=== PATIENT | male | born 1970 | race Caucasian/White ===

== ENCOUNTER 2022-05-31 20:58 | Observation (INO) | payer OTHER, BC ==
[2022-05-31] MEDS ORDERED: DUONEB 0.5-3 MG/3 ml Neb IH ONE ×2 (21:31→21:40)
[2022-05-31] MEDS ORDERED: solu-MEDROL 125 MG, Sterile H2O 10 ml 2 ML IV ONE ×2 (21:31)
[2022-05-31] MEDS ORDERED: Sodium Chloride 0.9% 1000 ML 1,000 ML IV STA (21:31)
[2022-05-31] MEDS ORDERED: Sodium Chloride 0.9% 1000 ML 1,000 ML ONE (21:43)
[2022-05-31] MEDS ORDERED: Sterile H2O 10 ml IJ ONE (21:43)
[2022-05-31] MEDS ORDERED: solu-MEDROL ONE (21:43)
[2022-05-31 21:56] LABS: Absolute Neutrophil Ct (ANC) 12.32 x10^3/uL (1.4-6.9); BASOPHIL % 0.3 % (0.0-0.4); Basophil (Absolute #) 0.04 x10^3/uL (0-0.4); Eosinophil % 0.3 % (0.00-5.0); Eosinophil (Absolute #) 0.05 x10^3/uL (0-0.5); Hematocrit 39.8 % (42-50); Hemoglobin 13.4 g/dL (12.5-18.0); IMMATURE GRAN # 0.09 x10^3u/L (0.00-0.03); IMMATURE GRAN % 0.6 % (0.00-0.4); Lymphocyte (Absolute #) 1.14 x10^3/uL (1.0-4.6); Lymphocytes % 7.9 % (24.0-44.0); Mean Corpuscular Hemoglobin 31.3 pg (26-32); Mean Corpuscular Hgb Concent. 33.7 g/dL (32-36); Mean Platelet Volume 10.9 fL (7.5-11.0); Monocyte (Absolute #) 0.81 x10^3/uL (0.0-1.3); Monocytes % 5.6 % (0.0-12.0); Neutrophil % 85.3 % (36.0-66.0); Platelet Count 259 x10^3/uL (150-450); Red Blood Count 4.28 x10^6/uL (4.1-5.6); Red Cell Distribution Width 12.4 % (11.5-14.0); White Blood Count 14.5 x10^3/uL (4.0-10.5)
[2022-05-31 22:09] LABS: ALBUMIN 3.8 g/dL (3.5-5.0); ALKALINE PHOSPHATASE 89 U/L (38-126); ANION GAP 11.9 MEQ/L (5-15); BLOOD UREA NITROGEN 7 mg/dL (9-20); CHLORIDE 93 mmol/L (98-107); Calcium 8.9 mg/dL (8.4-10.2); Carbon Dioxide 25 mmol/L (22-30); Creatinine 1 0.71 mg/dL (0.66-1.25); EST GLOMERULAR FILTRATION RATE > 60.0 ML/MIN; Glucose 142 mg/dL (74-106); Potassium 3.6 mmol/L (3.5-5.1); SGOT/AST 28 U/L (17-59); SGPT/ALT 32 U/L (0-50); SODIUM 126 mmol/L (137-145); Total Protein 7.5 g/dL (6.3-8.2)
[2022-05-31 22:34] LABS: INFLUENZA A NEGATIVE (NEGATIVE); INFLUENZA B NEGATIVE (NEGATIVE); RESPIRATORY SYNCTIAL VIRUS NEGATIVE (Negative); SARS-CoV-2 Xpert Express NEGATIVE (NEGATIVE)
[2022-05-31] MEDS ORDERED: ROCEPHIN 1 Gm-D5w 50 ml Bag** 1 G/50 ML IVPB IV STA (22:42)
[2022-05-31] MEDS ORDERED: ROCEPHIN 1 Gm-D5w 50 ml Bag** 1 G/50 ML IVPB IV ONE (22:57)
[2022-05-31] MEDS ORDERED: Zithromax 500 MG/ 250 ML NaCl Premix 500 MG/250 ML IVPB IV ONE ×2 (23:45→23:57)
--- NOTE | 2022-06-01 01:09 | ERPHSYRPT ---
- History of Present Illness Time Seen by Provider: 05/31/22 21:15 Source: patient, family Exam Limitations: no limitations Patient Subjective Stated Complaint: shortness of breath, fever, cough x1 week Triage Nursing Assessment: pt ambulatory to bed by self with , alert and oriented x3, pt c/o shortness of breath, fever, cough x1 week, pt has hx of asthma, pt states " I just need a steriod shot.", lung sounds clear throughout, pt has fever of 100.5 orally, last dose of motrin at 1730 Physician History: Patient is a 51-year-old male with a history of some asthma who presents with what he thinks is an exacerbation. He has been sick for a week he has been coughing and very short of breath his says that he gets winded taking even a few steps. He presents requesting only a steroid shot. However we were able to convince him to undergo some testing and evaluation. His O2 sats on arrival were 86 and 87 per the staff. Timing/Duration: week(s) (1) Cough Quality/Degree: productive cough, sputum Possible Cause: illness exposure Modifying Factors: Improves With: coughing, deep breath Associated Symptoms: cough, wheezing Allergies/Adverse Reactions: No Known Drug Allergies Allergy (Verified 05/31/22 21:01) Home Medications: Atorvastatin Calcium [Lipitor 20MG Tablet] 20 mg PO DAILY 05/31/22 [History] Hx Tetanus, Diphtheria Vaccination/Date Given: Yes Hx Influenza Vaccination/Date Given: No Hx Pneumococcal Vaccination/Date Given: No Immunizations Up to Date: Yes Travel Risk - International Travel Have you traveled outside of the country in past 3 weeks: No - Coronavirus Screening Are you exhibiting any of the following symptoms?: Yes Symptoms: Fever, Shortness of Breath Close contact with a COVID-19 positive Pt in past 14-21 Days: No - Vaccine Status Have you recieved a Covid-19 vaccination: No - Review of Systems Constitutional: No Fever, No Chills Eyes: No Symptoms Ears, Nose, & Throat: No Symptoms Respiratory: Dyspnea, Wheezing, No Cough Cardiac: No Chest Pain, No Edema, No Syncope Abdominal/Gastrointestinal: No Abdominal Pain, No Nausea, No Vomiting, No Diarrhea Genitourinary Symptoms: No Dysuria Musculoskeletal: No Back Pain, No Neck Pain Skin: No Rash Neurological: No Dizziness, No Focal Weakness, No Sensory Changes Psychological: No Symptoms Endocrine: No Symptoms All Other Systems: Reviewed and Negative - Past Medical History Pertinent Past Medical History: Yes Neurological History: Peripheral Neuropathy ENT History: No Pertinent History Cardiac History: High Cholesterol, Hypertension Respiratory History: No Pertinent History Endocrine Medical History: No Pertinent History Musculoskeletal History: Fractures GI Medical History: No Pertinent History History: No Pertinent History Psycho-Social History: No Pertinent History Male Reproductive Disorders: No Pertinent History Other Medical History: pt states he has had some high blood pressure (at a high 158/104) - Past Surgical History Past Surgical History: Yes Neuro Surgical History: No Pertinent History Cardiac: No Pertinent History Respiratory: No Pertinent History Gastrointestinal: No Pertinent History Genitourinary: No Pertinent History Musculoskeletal: Orthopedic Surgery Male Surgical History: Vasectomy Other Surgical History: 08/19/14 ORIF right ankle - Social History Smoking Status: Former smoker Exposure to second hand smoke: Yes Alcohol Use: Socially Drug Use: none Patient Lives Alone: No Significant Family History: no pertinent family hx - Nursing Vital Signs Nursing Vital Signs: Initial Vital Signs Pulse Rate 117 H 05/31/22 21:01 Respiratory Rate 18 05/31/22 21:01 Blood Pressure 138/94 05/31/22 21:01 O2 Sat by Pulse Oximetry 89 L 05/31/22 21:01 Pain Scale Pain Intensity 0 - Physical Exam General Appearance: moderate distress, alert Eye Exam: PERRL/EOMI, eyes nml inspection Ears, Nose, Throat Exam: normal ENT inspection, TMs normal, pharynx normal, moist mucous membranes Neck Exam: normal inspection, non-tender, supple, full range of motion Respiratory Exam: normal breath sounds, lungs clear, No respiratory distress Cardiovascular Exam: regular rate/rhythm, normal heart sounds Gastrointestinal/Abdomen Exam: soft, No tenderness Back Exam: normal inspection, No CVA tenderness, No vertebral tenderness Extremity Exam: normal inspection, normal range of motion Neurologic Exam: alert, oriented x 3, cooperative, normal mood/affect, sensation nml, No motor deficits Skin Exam: normal color, warm, dry, No rash Lymphatic Exam: No adenopathy SpO2: 94 - Course Nursing assessment & vital signs reviewed: Yes EKG Interpreted by Me: RATE ([id number]), Sinus Tach, Left [place] Deviation, NORMAL INTERVALS, Non-specific ST Changes - Radiology Exams Chest X-ray Interpretation: Interpreted by me, Other (Bilateral opacities in the bases much more on the left than the right) Ordered Tests: Active Orders 24 hr Category Date Time Status CHEST 1 VIEW (PORTABLE) Stat Exams 05/31/22 21:31 Taken BLOOD CULTURE Stat Lab 05/31/22 23:00 Received CBC W DIFF Stat Lab 05/31/22 21:53 Completed CMP Stat Lab 05/31/22 21:53 Completed D-DIMER QUANTITATIVE Stat Lab 05/31/22 21:53 Completed Lactic Acid Stat Lab 05/31/22 21:55 Completed Respiratory Therapy Assessment DAILY RT 05/31/22 22:03 Active Medication Summary Discontinued Medications Generic Name Dose Route Start Last Admin Trade Name Freq PRN Reason Stop Dose Admin Albuterol/Ipratropium 3 ml 05/31/22 21:31 05/31/22 21:45 Ipratropium/Albuterol Sulfate 3 Ml Ampul.Neb IH 05/31/22 21:32 3 ml STAT ONE Administration Albuterol/Ipratropium Confirm 05/31/22 21:40 Ipratropium/Albuterol Sulfate 3 Ml Ampul.Neb Administered 05/31/22 21:41 Dose 3 ml IH .STK-MED ONE Methylprednisolone Sodium 0 mg 05/31/22 21:31 05/31/22 21:53 Succinate 125 mg/ Sterile IV 05/31/22 21:32 125 mg Water 2 ml STAT ONE Administration Sodium Chloride 1,000 mls @ 999 mls/hr 05/31/22 21:31 05/31/22 22:59 Sodium Chloride 0.9% 1000 Ml IV 05/31/22 22:31 Infused .Q1H1M STA Infusion Sodium Chloride Confirm 05/31/22 21:43 Sodium Chloride 0.9% 1000 Ml Administered 05/31/22 21:44 Dose 1,000 mls @ ud .ROUTE .STK-MED ONE Ceftriaxone Sodium/Dextrose 1 g in 50 mls @ 100 mls/hr 05/31/22 22:42 05/31/22 22:59 Rocephin 1 Gm-D5w 50 Ml Bag IV 05/31/22 23:11 100 mls/hr STAT STA 100 mls/hr Administration Ceftriaxone Sodium/Dextrose Confirm 05/31/22 22:57 Rocephin 1 Gm-D5w 50 Ml Bag Administered 05/31/22 22:58 Dose 1 g in 50 mls @ ud IV .STK-MED ONE Azithromycin 500 mg in 250 mls @ 250 mls/hr 05/31/22 23:45 06/01/22 00:11 Zithromax 500 Mg/ 250 Ml Nacl Premix IV 06/01/22 00:44 250 mls/hr STAT ONE Administration Azithromycin Confirm 05/31/22 23:57 Zithromax 500 Mg/ 250 Ml Nacl Premix Administered 05/31/22 23:58 Dose 500 mg in 250 mls @ ud IV .STK-MED ONE Methylprednisolone Sodium Succinate Confirm 05/31/22 21:43 Methylprednis Sod Succ 125 Mg/2 Ml Vial Administered 05/31/22 21:44 Dose 125 mg .ROUTE .STK-MED ONE Sterile Water Confirm 05/31/22 21:43 Water For Injection,Sterile 10 Ml Vial Administered 05/31/22 21:44 Dose 10 ml IJ .STK-MED ONE Lab/Rad Data: Laboratory Result Diagrams 05/31/22 21:53 05/31/22 21:53 Laboratory Results 05/31/22 05/31/22 05/31/22 Range/Units 21:55 21:53 21:53 WBC (4.0-10.5) x10^3/uL RBC (4.1-5.6) x10^6/uL Hgb (12.5-18.0) g/dL Hct (42-50) % MCV (78-100) fL MCH (26-32) pg MCHC (32-36) g/dL RDW (11.5-14.0) % Plt Count (150-450) x10^3/uL MPV (7.5-11.0) fL Gran % (36.0-66.0) % Immature Gran % (Auto) (0.00-0.4) % Nucleat RBC Rel Count (0.00-0.1) % Eos # (Auto) (0-0.5) x10^3/uL Immature Gran # (Auto) (0.00-0.03) x10^3u/L Absolute Lymphs (auto) (1.0-4.6) x10^3/uL Absolute Monos (auto) (0.0-1.3) x10^3/uL Absolute Nucleated RBC (0.00-0.01) x10^3u/L Lymphocytes % (24.0-44.0) % Monocytes % (0.0-12.0) % Eosinophils % (0.00-5.0) % Basophils % (0.0-0.4) % Absolute Granulocytes (1.4-6.9) x10^3/uL Basophils # (0-0.4) x10^3/uL D-Dimer 0.45 (0.0-0.50) mg/L Sodium (137-145) mmol/L Potassium (3.5-5.1) mmol/L Chloride (98-107) mmol/L Carbon Dioxide (22-30) mmol/L Anion Gap (5-15) MEQ/L BUN (9-20) mg/dL Creatinine (0.66-1.25) mg/dL Estimated GFR ML/MIN Glucose (74-106) mg/dL Lactic Acid 1.7 (0.4-2.0) Calcium (8.4-10.2) mg/dL Total Bilirubin (0.2-1.3) mg/dL AST (17-59) U/L ALT (0-50) U/L Alkaline Phosphatase (38-126) U/L Serum Total Protein (6.3-8.2) g/dL Albumin (3.5-5.0) g/dL Influenza Type A Ag NEGATIVE (NEGATIVE) Influenza Type B Ag NEGATIVE (NEGATIVE) RSV (PCR) NEGATIVE (Negative) SARS-CoV-2 (PCR) NEGATIVE (NEGATIVE) 05/31/22 05/31/22 Range/Units 21:53 21:53 WBC 14.5 H (4.0-10.5) x10^3/uL RBC 4.28 (4.1-5.6) x10^6/uL Hgb 13.4 (12.5-18.0) g/dL Hct 39.8 L (42-50) % MCV 93.0 (78-100) fL MCH 31.3 (26-32) pg MCHC 33.7 (32-36) g/dL RDW 12.4 (11.5-14.0) % Plt Count 259 (150-450) x10^3/uL MPV 10.9 (7.5-11.0) fL Gran % 85.3 H (36.0-66.0) % Immature Gran % (Auto) 0.6 H (0.00-0.4) % Nucleat RBC Rel Count 0.0 (0.00-0.1) % Eos # (Auto) 0.05 (0-0.5) x10^3/uL Immature Gran # (Auto) 0.09 H (0.00-0.03) x10^3u/L Absolute Lymphs (auto) 1.14 (1.0-4.6) x10^3/uL Absolute Monos (auto) 0.81 (0.0-1.3) x10^3/uL Absolute Nucleated RBC 0.00 (0.00-0.01) x10^3u/L Lymphocytes % 7.9 L (24.0-44.0) % Monocytes % 5.6 (0.0-12.0) % Eosinophils % 0.3 (0.00-5.0) % Basophils % 0.3 (0.0-0.4) % Absolute Granulocytes 12.32 H (1.4-6.9) x10^3/uL Basophils # 0.04 (0-0.4) x10^3/uL D-Dimer (0.0-0.50) mg/L Sodium 126 L (137-145) mmol/L Potassium 3.6 (3.5-5.1) mmol/L Chloride 93 L (98-107) mmol/L Carbon Dioxide 25 (22-30) mmol/L Anion Gap 11.9 (5-15) MEQ/L BUN 7 L (9-20) mg/dL Creatinine 0.71 (0.66-1.25) mg/dL Estimated GFR > 60.0 ML/MIN Glucose 142 H (74-106) mg/dL Lactic Acid (0.4-2.0) Calcium 8.9 (8.4-10.2) mg/dL Total Bilirubin 0.60 (0.2-1.3) mg/dL AST 28 (17-59) U/L ALT 32 (0-50) U/L Alkaline Phosphatase 89 (38-126) U/L Serum Total Protein 7.5 (6.3-8.2) g/dL Albumin 3.8 (3.5-5.0) g/dL Influenza Type A Ag (NEGATIVE) Influenza Type B Ag (NEGATIVE) RSV (PCR) (Negative) SARS-CoV-2 (PCR) (NEGATIVE) - Progress Progress: improved Air Movement: good Blood Culture(s) Obtained: Yes Antibiotics given: Yes Discussed with : Isa Will see patient in: hospital (observation) Medical Desision Making - Independent Historian Additional History obtained from: Spouse - Discussion of managment Care discussed with:: on-call "doc" Reviewed:: Test results Agreed on:: Treatment plan Will see patient: in hospital - Diagnostic Testing Diagnostic Testing: Diagnostic tests were ordered,analyzed, and reviewed by me and used in my medica l decision making for this patient. Radiologic studies (if ordered) were read by me initially then discussed with the radiologist . - Risk of complications Low Risk: Low risk of morbidity from additional dx testing or treatment - Departure Departure Disposition: Observation Clinical Impression: Pneumonia Condition: Stable Critical Care Time: No Referrals: CLAUDIA RIZO MD [Primary Care Provider] - Follow up/PCP as directed Instructions: Pneumonia, Adult (DC)
[2022-06-01] MEDS: Sodium Chloride 0.9% 1000 ML 1,000 ML IV SCH ×3 (02:10→17:31)
[2022-06-01] MEDS ORDERED: VENTOLIN COMMON CANISTER IH PRN (02:49)
[2022-06-01 05:20] LABS: Hematocrit 38.8 % (42-50); Hemoglobin 12.8 g/dL (12.5-18.0); Mean Cell Volume 93.3 fL (78-100); Mean Corpuscular Hemoglobin 30.8 pg (26-32); Mean Platelet Volume 10.7 fL (7.5-11.0); Platelet Count 260 x10^3/uL (150-450); Red Blood Count 4.16 x10^6/uL (4.1-5.6); Red Cell Distribution Width 12.5 % (11.5-14.0); White Blood Count 11.9 x10^3/uL (4.0-10.5)
[2022-06-01 05:44] LABS: ALBUMIN 3.8 g/dL (3.5-5.0); ALKALINE PHOSPHATASE 79 U/L (38-126); BLOOD UREA NITROGEN 8 mg/dL (9-20); CHLORIDE 97 mmol/L (98-107); Calcium 8.8 mg/dL (8.4-10.2); Carbon Dioxide 25 mmol/L (22-30); Creatinine 1 0.69 mg/dL (0.66-1.25); EST GLOMERULAR FILTRATION RATE > 60.0 ML/MIN; Glucose 200 mg/dL (74-106); Potassium 4.2 mmol/L (3.5-5.1); SGOT/AST 27 U/L (17-59); SGPT/ALT 33 U/L (0-50); SODIUM 129 mmol/L (137-145); Total Protein 7.4 g/dL (6.3-8.2)
[2022-06-01] MEDS: PATIENT OWN MEDICATION IH SCH ×3 (08:05→19:16)
--- NOTE | 2022-06-01 09:10 | XRAY ---
Indication: Short of breath. Comparison: September 01, 2017 Portable chest demonstrates new diffuse bilateral patchy airspace disease without consolidation/large effusion. Covid 19 pneumonia offered for clinical consideration. Heart not enlarged. Bony thorax intact.
[2022-06-01] MEDS: VITAMIN D PO SCH (14:02)
[2022-06-01] MEDS: ECOTRIN 81 MG PO SCH (14:02)
[2022-06-01] MEDS: Vitamin B-12 500 MCG PO SCH (14:02)
[2022-06-01] MEDS ORDERED: xanAX 0.5 MG PO PRN (20:24)
[2022-06-01] MEDS ORDERED: ROCEPHIN 1 Gm-D5w 50 ml Bag** 1 G/50 ML IVPB IV SCH (22:00)
[2022-06-01] MEDS ORDERED: Toprol Xl 50 MG PO SCH (22:00)
[2022-06-01] MEDS ORDERED: Zithromax 500 MG/ 250 ML NaCl Premix 500 MG/250 ML IVPB IV SCH (22:00)
[2022-06-01] MEDS ORDERED: NON-FORMULARY ITEM (Atorvastatin Calcium 20 MG Tab) PO SCH (22:00)
[2022-06-01] MEDS ORDERED: ZOCOR 20MG PO SCH (22:00)
[2022-06-02] MEDS: Sodium Chloride 0.9% 1000 ML 1,000 ML IV SCH (02:41)
[2022-06-02 06:59] VITALS: BP 167/84
[2022-06-02] MEDS: PATIENT OWN MEDICATION IH SCH (07:57)
[2022-06-02 08:10] VITALS: PULSE 84; O2SAT 95
[2022-06-02] MEDS: Vitamin B-12 500 MCG PO SCH (08:13)
[2022-06-02] MEDS: VITAMIN D PO SCH (08:14)
[2022-06-02] MEDS: ECOTRIN 81 MG PO SCH (08:14)
--- NOTE | 2022-06-02 10:40 | PCM.SSS ---
History of Present Illness - Chief Complaint Chief Complaint: pneumonia History of Present Illness: is a 51 year old male patient of Dr Gonzáles who works at the [employer] .Patirandin presented to ER with shortness of breath. PMHx includes asthma,HTN,HLD.. ER eval revealed pneumonia,WBC was 16,000. He was admitted to [facility] on IV Solumedrol ,Zithromax and Rocephin. Patient states he is breathing much better and asking to go home. I advised staying overnight for further IV tx. He has required O2 2L/NC but has not had O2 at home. - Review of Systems Constitutional: Fatigue Eyes: No Symptoms Ears, Nose, & Throat: Sinus Drainage Respiratory: Cough, Short Of Breath, Wheezing Cardiac: No Symptoms Abdominal/Gastrointestinal: No Symptoms Genitourinary Symptoms: No Symptoms Musculoskeletal: No Symptoms Skin: No Symptoms Neurological: No Symptoms Psychological: No Symptoms Endocrine: No Symptoms Hematologic/Lymphatic: No Symptoms Immunological/Allergic: No Symptoms Medications & Allergies Home Medications: Home Medication List Atorvastatin Calcium [Lipitor 20MG Tablet] 40 mg PO HS 05/31/22 [History Confirmed 06/01/22] Aspirin EC 81 mg [Ecotrin 81 mg] 1 tab PO DAILY 06/01/22 [History Confirmed 06/01/22] Cholecalciferol (Vitamin D3) [Vitamin D] 1 tab PO DAILY 06/01/22 [History Confirmed 06/01/22] Cyanocobalamin 1000 Mcg/ml [Cyanocobalamin B-12 1000 MCG/ML] 1 tab PO DAILY 06/01/22 [History Confirmed 06/01/22] Metoprolol Succinate 50 mg PO HS 06/01/22 [History Confirmed 06/01/22] Azithromycin [Zithromax Tri-Jadon] 500 mg PO DAILY #3 tablet 06/02/22 [Rx] Cephalexin Mh 500 mg [Keflex 500 mg] 500 mg PO TID #15 cap 06/02/22 [Rx] Methylprednisolone Packet [Medrol Dosepack] 0 mg PO DAILY 6 Days #1 packet 06/02/22 [Rx] Allergies/Adverse Reactions: Allergies Allergy/AdvReac Type Severity Reaction Status Date / Time No Known Drug Allergies Allergy Verified 05/31/22 21:01 - Past Medical History Past Medical History: Yes Neurological History: Peripheral Neuropathy ENT History: No Pertinent History Cardiac History: High Cholesterol, Hypertension Respiratory History: No Pertinent History Endocrine Medical History: No Pertinent History Musculoskelatal History: Fractures GI Medical History: No Pertinent History History: No Pertinent History Pyscho-Social History: No Pertinent History Male Reproductive Disorders: No Pertinent History Comment: pt states he has had some high blood pressure (at a high 158/104) - Past Surgical History Past Surgical History: Yes Neuro Surgical History: No Pertinent History Cardiac History: No Pertinent History Respiratory Surgery: No Pertinent History GI Surgical History: No Pertinent History Genitourinary Surgical Hx: No Pertinent History Musculskeletal Surgical Hx: Orthopedic Surgery Male Surgical History: Vasectomy Other Surgical History: 08/19/14 ORIF right ankle - Social History Smoking Status: Former smoker Exposure to second hand smoke: Yes Alcohol: Daily Drug Use: none Significant Family History: no pertinent family hx - Physical Exam Vital Signs: Vital Signs - 24 hr Temp Pulse Resp BP Pulse Ox 06/02/22 08:05 84 16 95 06/02/22 06:58 97.8 F 75 18 167/84 97 06/02/22 04:00 97.5 F 68 18 154/79 90 L 06/01/22 23:21 97.7 F 83 18 145/86 92 L 06/01/22 19:19 92 L 06/01/22 19:07 98.4 F 93 H 18 146/73 91 L 06/01/22 16:00 98.2 F 104 H 15 171/81 93 L 06/01/22 11:56 97.8 F 98 H 16 169/75 92 L General Appearance: no apparent distress Neurologic Exam: alert, oriented x 3, cooperative, normal mood/affect Eye Exam: eyes nml inspection Ears, Nose, Throat Exam: normal ENT inspection Neck Exam: normal inspection Respiratory Exam: normal breath sounds Cardiovascular Exam: regular rate/rhythm Gastrointestinal/Abdomen Exam: soft, normal bowel sounds Rectal Exam: not done Back Exam: normal inspection Extremity Exam: normal inspection Skin Exam: normal color, warm, dry Results - Labs Lab/Micro Results: Microbiology 05/31/22 23:00 Blood Culture - Preliminary Blood NO GROWTH TO DATE - Radiology Impressions Radiology Exams & Impressions: Radiology Procedures Category Date Time Status CHEST 1 VIEW (PORTABLE) Stat Exams 05/31/22 21:31 Completed - Other Procedures and Tests Respiratory Therapy 06/01/22 09:52 Respiratory MDI UD 06/01/22 11:12 Incentive Spirometry UD 06/01/22 14:38 RT Miscellaneous Order ROUTINE Assessment/Plan (1) Pneumonia Current Visit: Yes Status: Acute Assessment & Plan: clinically improved on IV Zithromas and Rocephin and Solumedrol Code(s): J18.9 - PNEUMONIA, UNSPECIFIED ORGANISM (2) Asthma Current Visit: Yes Status: Chronic Qualifiers: Asthma persistence: intermittent Assessment & Plan: To follow with PCP and possibly Slack Cooper Code(s): J45.909 - UNSPECIFIED ASTHMA, UNCOMPLICATED (3) HTN (hypertension) Current Visit: Yes Status: Chronic Assessment & Plan: monitor at home Code(s): I10 - ESSENTIAL (PRIMARY) HYPERTENSION Hospital Summary - Hospital Course Hospital Course: please see discussion in HPI and discharge orders - Vitals & Intake/Output Vital Signs: Vital Signs Temperature 97.8 F 06/02/22 06:58 Pulse Rate 84 06/02/22 08:05 Respiratory Rate 16 06/02/22 08:05 Blood Pressure 167/84 06/02/22 06:58 O2 Sat by Pulse Oximetry 95 06/02/22 08:05 Intake & Output: Intake & Output 05/30/22 05/31/22 06/01/22 06/02/22 11:59 11:59 11:59 11:59 Intake Total 1594 4712 Output Total 900 3000 Balance 694 1712 Weight 96.5 kg 96.1 kg - Lab Result Diagrams: 06/01/22 04:40 06/01/22 04:40 Micro Results-Entire Visit: Microbiology 05/31/22 23:00 Blood Culture - Preliminary Blood NO GROWTH TO DATE - Radiology Exams Ordered Rad Exams-Entire Visit: Radiology Procedures Category Date Time Status CHEST 1 VIEW (PORTABLE) Stat Exams 05/31/22 21:31 Completed - Procedures and Test Procedures and Tests throughout Hospitalization: Therapy Orders & Screens 05/31/22 22:03 Respiratory Therapy Assessment DAILY Comment: 06/01/22 01:11 Oxygen Nasal Cannula 2 lpm Comment: 06/01/22 01:13 Respiratory Therapy Consult ROUTINE Comment: Reason For Exam: 06/01/22 01:56 RT Screen per Nursing Assess ONCE Comment: Protocol Order Physician Instructions: Greater than 3 points order RT Admission Screen Reason For Exam: Triggered on Admission Diagnosis: pneumonia Diagnosis: pneumonia Pneumonia: Yes Home O2: No Asthma: Yes CHF: No Home CPAP/BIPAP: No Home Nebs/MDI: Yes Total Points: 12 06/01/22 02:44 Respiratory Therapy Assessment DAILY Comment: Diagnosis: pneumonia 06/01/22 09:52 Respiratory MDI UD Comment: Diagnosis: pneumonia 06/01/22 11:12 Incentive Spirometry UD Comment: Diagnosis: pneumonia 06/01/22 14:38 RT Miscellaneous Order ROUTINE Comment: Physician Instructions: IF OKAY AT REST- PLEASE WALK Reason For Exam: WEAN OFF Diagnosis: pneumonia - Discharge Disposition: Home, Self-Care Condition: Good Prescriptions: New Cephalexin Mh 500 mg [Keflex 500 mg] 500 mg PO TID #15 cap Methylprednisolone Packet [Medrol Dosepack] 0 mg PO DAILY 6 Days #1 packet Azithromycin [Zithromax Tri-Jadon] 500 mg PO DAILY #3 tablet Continue Atorvastatin Calcium [Lipitor 20MG Tablet] 40 mg PO HS Metoprolol Succinate 50 mg PO HS Cholecalciferol (Vitamin D3) [Vitamin D] 1 tab PO DAILY Cyanocobalamin 1000 Mcg/ml [Cyanocobalamin B-12 1000 MCG/ML] 1 tab PO DAILY Aspirin EC 81 mg [Ecotrin 81 mg] 1 tab PO DAILY Instructions: Pneumonia, Adult (DC) Follow up with: CLAUDIA IRZO MD [Primary Care Provider] - 06/09/22 10:45 am Forms: Work/School Release Form
== END 2022-06-02 11:05 | disposition home or self-care (01) ==
LOC: ED 20:58 → MED SURG 06-01 01:34
PROVIDERS: ADMIT General Practice; ATTEND Family Medicine
DX: J18.9 Pneumonia, unspecified organism (principal); J45.909 Unspecified asthma, uncomplicated; I10 Essential (primary) hypertension; E78.5 Hyperlipidemia, unspecified; D72.829 Elevated white blood cell count, unspecified; Z79.899 Other long term (current) drug therapy; Z20.828 Contact with and (suspected) exposure to other viral communicable diseases
CPT/HCPCS: 0241U; 36415; 71045; 80053; 83605; 85025; 85027; 85379; 87040; 94640; 94760; 96365; 96374; 96375; 99285; J0456; J0696; J2930; A9270-GY

== ENCOUNTER 2024-05-03 01:34 | Emergency (ER) | payer OTHER ==
[2024-05-03 01:38] VITALS: TEMP 97.9
[2024-05-03 02:01] VITALS: RESP 18
[2024-05-03 02:47] LABS: INFLUENZA A NEGATIVE (NEGATIVE); INFLUENZA B NEGATIVE (NEGATIVE); RESPIRATORY SYNCTIAL VIRUS NEGATIVE (NEGATIVE); SARS-CoV-2 Xpert Express NEGATIVE (NEGATIVE)
[2024-05-03] MEDS ORDERED: TORAdol 30 mg Injection ONE (03:48)
[2024-05-03] MEDS ORDERED: DECADRON 10MG INJ. ONE (03:48)
--- NOTE | 2024-05-03 03:49 | ERPHSYRPT ---
- History of Present Illness Time Seen by Provider: 05/03/24 01:40 Source: patient Exam Limitations: no limitations Patient Subjective Stated Complaint: sore throat x2 days Triage Nursing Assessment: Pt ambulated into ER without diff, pt c/o sore throat x2 days which has just got worse tonight. Pt feels like it's hard to swallow. Pt's throat is red, no white patches noted. Airway patent, O2 sats 97% on rm air. Physician History: Patient is a 53-year-old male presents to our emergency department for evaluation of a sore throat. Symptoms started 2 days ago. Symptoms are gotten progressively worse. Patient is having difficulty swallowing due to pain and discomfort. Patient tolerating oral secretions. No trauma. No fever. No nausea no vomiting no diaphoresis. Symptoms are mild to moderate in intensity. Pain worse with swallowing. Pain improved with rest. Patient had similar symptoms in the past. Patient requesting IM steroid. Patient otherwise feels well. No diarrhea no rash. Patient otherwise feels well and voices no other complaints or concerns at this time. Portions of this note were created with voice recognition technology. There may be grammatical, spelling, punctuation or sound alike errors Timing/Duration: day(s) (2 days ago) Severity: moderate Modifying Factors: Improves With: other (Swallowing) Associated Symptoms: denies symptoms Allergies/Adverse Reactions: No Known Drug Allergies Allergy (Verified 05/31/22 21:01) Home Medications: Atorvastatin Calcium [Lipitor 20MG Tablet] 40 mg PO HS 05/31/22 [History] Aspirin EC 81 mg [Ecotrin 81 mg] 1 tab PO DAILY 06/01/22 [History] Cholecalciferol (Vitamin D3) [Vitamin D] 1 tab PO DAILY 06/01/22 [History] Cyanocobalamin 1000 Mcg/ml [Cyanocobalamin B-12 1000 MCG/ML] 1 tab PO DAILY 06/01/22 [History] Metoprolol Succinate 50 mg PO HS 06/01/22 [History] Hx Tetanus, Diphtheria Vaccination/Date Given: Yes Hx Influenza Vaccination/Date Given: No Hx Pneumococcal Vaccination/Date Given: No Travel Risk - International Travel Have you traveled outside of the country in past 3 weeks: No - Emerging Infectious Disease Are you exhibiting symptoms associated with any current EIDs: No - Review of Systems Constitutional: No Symptoms, No Fever, No Chills Eyes: No Symptoms Ears, Nose, & Throat: No Symptoms Respiratory: No Symptoms, No Cough, No Dyspnea Cardiac: No Symptoms, No Chest Pain, No Edema, No Syncope Abdominal/Gastrointestinal: No Symptoms, No Abdominal Pain, No Nausea, No Vomiting, No Diarrhea Genitourinary Symptoms: No Symptoms, No Dysuria Musculoskeletal: No Symptoms, No Back Pain, No Neck Pain Skin: No Symptoms, No Rash Neurological: No Symptoms, No Dizziness, No Focal Weakness, No Sensory Changes Psychological: No Symptoms Endocrine: No Symptoms Hematologic/Lymphatic: No Symptoms Immunological/Allergic: No Symptoms All Other Systems: Reviewed and Negative - Past Medical History Pertinent Past Medical History: Yes Neurological History: Peripheral Neuropathy ENT History: No Pertinent History Cardiac History: High Cholesterol, Hypertension Respiratory History: No Pertinent History Endocrine Medical History: No Pertinent History Musculoskeletal History: Fractures GI Medical History: No Pertinent History History: No Pertinent History Psycho-Social History: No Pertinent History Male Reproductive Disorders: No Pertinent History Other Medical History: pt states he has had some high blood pressure (at a high 158/104) - Past Surgical History Past Surgical History: Yes Neuro Surgical History: No Pertinent History Cardiac: No Pertinent History Respiratory: Other Gastrointestinal: No Pertinent History Genitourinary: No Pertinent History Musculoskeletal: Orthopedic Surgery Male Surgical History: Vasectomy Other Surgical History: 08/19/14 ORIF right ankle, lung biopsy Significant Family History: no pertinent family hx - Social History Smoking Status: Former smoker Exposure to second hand smoke: No Alcohol Use: Socially Drug Use: none Patient Lives Alone: No - Social Determinants of Health Will the patient participate in the screening: Yes Do you worry about a steady place to live?: No Do you have any problems with any of the following?: No known problems In the past 12 months,have you had to go without utilities?: No Transportation Issues: No Has anyone in your support network made you feel unsafe?: No Have you or anyone in your house had to go without enough: No - Nursing Vital Signs Nursing Vital Signs: Initial Vital Signs Temperature 97.9 F 05/03/24 01:36 Pulse Rate 71 05/03/24 01:36 Respiratory Rate 20 05/03/24 01:36 Blood Pressure 170/94 05/03/24 01:36 O2 Sat by Pulse Oximetry 97 05/03/24 01:36 Pain Scale Pain Intensity 5 - Physical Exam General Appearance: no apparent distress, alert Eye Exam: PERRL/EOMI, eyes nml inspection Ears, Nose, Throat Exam: normal ENT inspection, TMs normal, moist mucous membranes, pharyngeal erythema, other (Erythematous oropharynx. No peritonsillar abscess. No sublingual masses. No intraoral lesions. Patient tolerating oral secretions well.) Neck Exam: normal inspection, non-tender, supple, full range of motion Respiratory Exam: normal breath sounds, lungs clear, airway intact, No respiratory distress Cardiovascular Exam: regular rate/rhythm, normal heart sounds, normal peripheral pulses Gastrointestinal/Abdomen Exam: soft, normal bowel sounds, No tenderness, No mass Back Exam: normal inspection, normal range of motion, No CVA tenderness, No vertebral tenderness Extremity Exam: normal inspection, normal range of motion, pelvis stable Neurologic Exam: alert, oriented x 3, cooperative, normal mood/affect, sensation nml, No motor deficits Skin Exam: normal color, warm, dry, No rash Lymphatic Exam: No adenopathy SpO2 Interpretation: normal SpO2: 95 O2 Delivery: Room Air - Course Nursing assessment & vital signs reviewed: Yes Ordered Tests: Medication Summary Discontinued Medications Generic Name Dose Route Start Last Admin Trade Name Freq PRN Reason Stop Dose Admin Dexamethasone Sodium Phosphate 10 mg 05/03/24 03:40 Dexamethasone Sod Phosphate 10 Mg/Ml IM 05/03/24 03:41 STAT ONE Dexamethasone Sodium Phosphate Confirm 05/03/24 03:48 Dexamethasone Sod Phosphate 10 Mg/Ml Administered 05/03/24 03:49 Dose 10 mg .ROUTE .STK-MED ONE Ketorolac Tromethamine 60 mg 05/03/24 03:41 Ketorolac Tromethamine 30 Mg/Ml Inj IM 05/03/24 03:42 STAT ONE Ketorolac Tromethamine Confirm 05/03/24 03:48 Ketorolac Tromethamine 30 Mg/Ml Inj Administered 05/03/24 03:49 Dose 60 mg .ROUTE .STK-MED ONE Lab/Rad Data: Laboratory Results 05/03/24 05/03/24 Range/Units 02:10 02:10 Influenza Type A Ag NEGATIVE (NEGATIVE) Influenza Type B Ag NEGATIVE (NEGATIVE) RSV (PCR) NEGATIVE (NEGATIVE) SARS-CoV-2 (PCR) NEGATIVE (NEGATIVE) Group A Strep Antibody NOT DETECTED (NEGATIVE) - Progress Progress: improved Progress Note: 53-year-old male presents to emergency department for evaluation of a sore throat. Symptoms started 2 days ago. Physical exam reveals an erythematous oropharynx. No tonsillitis or tonsillar exudate. Oral airway is patent. No peritonsillar abscess. No sublingual masses. No intraoral lesions otherwise. Patient tolerating secretions well. Intact airway. RSV COVID influenza negative. Rapid strep negative as well. Patient received a dose of IM Toradol and IM Decadron. A prescription for Toradol forwarded to patient's pharmacy. Patient agrees to follow-up with his primary care doctor within 48 hours for reevaluation. He voices no other complaints or concerns at this time. Portions of this note were created with voice recognition technology. There may be grammatical, spelling, punctuation or sound alike errors Complexity of problem addressed is moderate acute complicated. No critical care time. Complexity of data reviewed analyzes moderate. Test ordered chest reviewed results analyzed and correlated clinically with history and physical exam. Risk of complication and or risk of morbidity/mortality of patient management is moderate. Prescription for Toradol electronically forwarded to patient's pharmacy. Vital stable. Time spent to discharge patient is approximately 15 minutes. Plan of care established for shared decision making. No social determinants of health present to impede follow-up. Portions of this note were created with voice recognition technology. There may be grammatical, spelling, punctuation or sound alike errors 05/03/24 03:56 Counseled pt/family regarding: lab results, diagnosis, need for follow-up - Departure Departure Disposition: Home Clinical Impression: Viral pharyngitis, Sore throat Condition: Stable Critical Care Time: No Referrals: CLAUDIA RIZO MD [Primary Care Provider] - Follow up/PCP as directed Additional Instructions: Discharge/Care Plan [facility] was seen on 05/03/24 in the Emergency Room. The patient was counseled regarding Diagnosis,Lab results, Imaging studies, need for follow up and when to return to the Emergency Room. Prescriptions given: Discharge Note I have spoken with the patient and/or caregivers. I have explained the patient's condition, diagnosis and treatment plan based on the information available to me at this time. I have answered the patient's and/or caregiver's questions and addressed any concerns. The patient and/or caregivers have as good understanding of the patient's diagnosis, condition and treatment plan as can be expected at this point. The vital signs have been stable. The patient's condition is stable and appropriate for discharge from the emergency department. The patient will pursue further outpatient evaluation with the primary care physician or other designated or consulting physician as outlined in the discharge instructions. The patient and/or caregivers are agreeable to this plan of care and follow-up instructions have been explained in detail. The patient and/or caregivers have received these instruction. The patient/and or caregivers are aware that any significant change in condition or worsening of symptoms should prompt an immediate return to this or the closest emergency department or call 911. Prescriptions: Ketorolac Trometh 10 mg Tab [TORAdol 10 MG TABLET] 10 mg PO TID 5 Days #15 tablet
[2024-05-03] MEDS: TORAdol 30 mg Injection IM ONE (03:52)
[2024-05-03] MEDS: DECADRON 10MG INJ. IM ONE (03:53)
[2024-05-03 04:05] VITALS: BP 182/96; PULSE 76; O2SAT 96
== END 2024-05-03 04:07 | disposition home or self-care (01) ==
LOC: ED 01:34
DX: J02.9 Acute pharyngitis, unspecified (principal); E78.5 Hyperlipidemia, unspecified; I10 Essential (primary) hypertension; Z79.899 Other long term (current) drug therapy
CPT/HCPCS: 0241U; 87651; 96372; 99284; 99283; J1100; J1885